=== PATIENT | female | born 1945 | race Caucasian/White ===

== ENCOUNTER 2017-01-25 10:46 | Observation (INO) | payer MEDICARE, BC ==
[~2017-01-25] VITALS: Ht 172.7 cm; Wt 94.1 kg
--- NOTE | ~2017-01-25 | CON ---
PATIENT'S NAME: DAYDAY PINEDA [facility] AGE: 71 Y [address] ROOM: [place] [address] LOCATION: GPCU ADMIT DATE: 01/25/2017 Consultation DISCHARGE DATE: FAMILY PHYSICIAN: Princess Newman MD ATTENDING PHYSICIAN: Sidney Gonzalez DATE OF CONSULTATION: 01/25/2017 REASON FOR CONSULTATION: Complete heart block. CHIEF COMPLAINT: Nausea. HISTORY OF PRESENT ILLNESS: The patient is a very pleasant 71-year-old female, who really does not have any prior cardiac history. She has history of migraines and hyperlipidemia. She had hematuria and was scheduled for cystoscopy today. She underwent her cystoscopy and tolerated the procedure well. However in recovery, she was having episodes of nausea and vomiting and during the episodes of nausea and vomiting, she went into the sinus nelson and then two-to-one AV block as well as complete heart block and sinus pauses lasting about 4.5 seconds. However, once she was done with her vomiting, she reverted back to normal sinus rhythm and sinus bradycardia. She really did not experience any lightheadedness, dizziness, chest pain, tightness, trouble breathing. The patient has history of chest pain off and on and she reports it is usually at rest. She had one episode back about five years ago. The latest episode was about a week ago. It lasted a few minutes and resolved on its own. She is quite active and does not have any cardiac symptoms of chest pain, discomfort, pressure, heaviness, tightness, arm pain, or jaw pain. She does not have dyspnea on exertion. She reports she is able to walk about eight blocks without any significant symptoms. No palpitations, presyncope, or syncopal episodes in the past. REVIEW OF SYSTEMS: All review of systems discussed with the patient. Pertinent positives and negatives mentioned in the history of presenting illness. PAST MEDICAL HISTORY: Hyperlipidemia and migraines. PAST SURGICAL HISTORY: Cystoscopy. She also had a history of cholecystectomy in 2005. PATIENT'S NAME: DAYDAY PINEDA [facility] AGE: 71 Y [address] ROOM: [place] [address] LOCATION: GPCU ADMIT DATE: 01/25/2017 Consultation DISCHARGE DATE: FAMILY PHYSICIAN: Princess Newman MD ATTENDING PHYSICIAN: Sidney Gonzalez MEDICATIONS: She is on fish oil inoh-gnt-[id number] capsules two times a day, Lipitor 20 mg daily, and sumatriptan. FAMILY HISTORY: Positive for premature coronary artery disease. Father had history of heart disease in his late 50s. No sudden cardiac . SOCIAL HISTORY: The patient does not smoke. No illicit drug abuse or alcohol abuse. She is . PHYSICAL EXAMINATION: VITAL SIGNS: Her blood pressure is 150/73, oxygen saturation 95% on room air, temperature 97.6, pulse is in the 70s, respirations 16. GENERAL: No apparent distress. Alert and oriented to time, place, and person. HEENT: Head, atraumatic and normocephalic. Eyes, sclerae white. Mucous membranes moist. SKIN: Warm and dry. HEART: S1 and S2. Regular rate and rhythm. No murmurs, gallops, or rubs. NECK: No JVD. LUNGS: Clear to auscultation bilaterally. ABDOMEN: Soft. Bowel sounds positive. EXTREMITIES: No significant lower extremity on the right side, however, the left ankle is swollen and this is chronic. NEUROLOGIC: Grossly intact. MUSCULOSKELETAL: Good range of motion. Able to move extremities without any difficulty. LABORATORY DATA: Her sodium 143, potassium 4.1, chloride 111, CO2 of 25, anion gap 11.1, glucose 84, BUN 9, creatinine 0.9. Alkaline phosphatase 102, AST 28, ALT 45, estimated GFR 60. WBC 5.7, H and H are 14.9 and 42.3, platelets 198. Tele, normal sinus rhythm. She has had four episodes of nausea and vomiting during all episodes she was in significant sinus nelson with 2-1 AV block with heart rate in the 30s and also episodes of sinus pauses lasting greater than 3 seconds. IMPRESSION: 1. Sinus pause, lasting about 4.4 seconds as well as 2:1 AV block without bundle branch block in the setting of severe nausea and vomiting. 2. Hyperlipidemia. PATIENT'S NAME: DAYDAY PINEDA [facility] AGE: 71 Y [address] ROOM: [place] [address] LOCATION: GPCU ADMIT DATE: 01/25/2017 Consultation DISCHARGE DATE: FAMILY PHYSICIAN: Princess Newman MD ATTENDING PHYSICIAN: Sidney Gonzalez PLAN: At this time, the patient's episodes of bradycardia as well as sinus pause are clearly in correlation with her nausea and vomiting and this can be seen secondary to profound vagal tone and that is the reason for it. She quickly returns back to normal sinus rhythm and her rate is in the 60s to 70s when she does not have nausea. We will admit her overnight and monitor her on telemetry. I will discharge her home on 30-day event monitor just to ensure she does not have any other episodes in the absence of nausea. We will get a 2D echocardiogram since she did have an episode of chest pain about a week ago to ensure her left ventricular systolic function is within normal limits and also assess her valves as well. I do not think she will end up requiring a pacemaker since this is all driven by her increased vagal tone in the setting of severe nausea and vomiting. There is no evidence of high-grade atrioventricular block on her EKG and she does not have any bundle branch blocks. Thank you very much for allowing us to participate in the care of Ms. Pineda. RENATA ROSS MD AT/modl /[id number] CC: Sidney Gonzalez MD d: 01/25/17 2312 t: 01/26/17 1556, CONSULTATION REPORT
--- NOTE | ~2017-01-25 | OR ---
PATIENT'S NAME: DAYDAY PINEDA [facility] AGE: 71 Y [address] ROOM: [place] [address] LOCATION: GPCU ADMIT DATE: 01/25/2017 OR/Procedure Report DISCHARGE DATE: FAMILY PHYSICIAN: Princess Newman MD ATTENDING PHYSICIAN: Sidney Gonzalez SURGEON: Sidney Gonzalez MD AVIATION TECHNICIAN AIRCRAFT: DATE OF PROCEDURE: 01/25/2017 PREOPERATIVE DIAGNOSES: 1. Gross hematuria. 2. Probable left distal ureteral calculus by CT scan. POSTOPERATIVE DIAGNOSES: 1. Gross hematuria. 2. Probable left distal ureteral calculus by CT scan. 3. Cystocele. ANESTHESIA: Sedation. INDICATION: This is a 71-year-old lady who had developed gross hematuria. She had a CT scan which suggested left distal calculus. She presents at this time for cystoscopy and upper tract evaluation. PROCEDURE: Having obtained her informed consent, the patient was taken to the operating room. She was prepped and draped sterilely and in lithotomy position. IV sedation was administered. A 21-Tajik cystoscope was assembled and guided into the urethra. The course of the urethra was unremarkable. We had to look down to see her orifices. As well see after the retrograde, just the contrast drains, her bladder neck is below her symphysis. The bladder itself was otherwise unremarkable on careful examination using the 30- and 70- degree lenses. Fluoroscopic examination was undertaken. The bowel gas pattern and soft tissue outlines were unremarkable. I started on the right side which was felt to be her normal side. Contrast was instilled. The ureter was pristine and delicate as were the calices. There was no evidence of a filling defect or any mass effect. I then injected on the left. Whatever was noted on her CT scan has passed. There was no filling defect. The catheter slides easily to the proximal third. The calices were finely cupped. There was no evidence of obstruction or any filling defect. The bladder was drained, and the case was concluded. PATIENT'S NAME: DAYDAY PINEDA [facility] AGE: 71 Y [address] ROOM: [place] [address] LOCATION: GPCU ADMIT DATE: 01/25/2017 OR/Procedure Report DISCHARGE DATE: FAMILY PHYSICIAN: Princess Newman MD ATTENDING PHYSICIAN: Sidney Gonzalez The patient tolerated the procedure well. Blood loss was negligible. No specimens were sent. The patient returned to recovery room in awake and stable condition. MD DAV BONNERH/daryl /[id number] CC: Tabitha Black APRN d: 01/25/172015 t: 01/26/17 1024, OPERATIVE SUMMARY
--- NOTE | ~2017-01-25 | ECHO ---
Transthoracic Echocardiography Report (TTE) Demographics Patient Name DAYDAY PINEDA Date of Study 01/26/2017 Patient Number [id number] Visit Number [id number] Date of 1945 Room Number G6329 Gender Female Number Age 71 year(s) Referring Carlos Livingston MD Senior Business Process Analyst Felicia Grady, Physician RT,RVT,RDCS Physician Interpreting Sherin Mazariegos MD [employer] Carpenter Physician Supervising Ordering Carlos Livingston MD, MD/MLP Physician Nurse Stress Vacuum Worker Conclusions Contractility Score Summary Normal Left Ventricular contractility was noted. Summary Normal LV/RV size and systolic function. The estimated left ventricular ejection fraction is 70-75%. Mild concentric left ventricular hypertrophy. Mild tricuspid regurgitation by color Doppler. Diastolic assessment reveals Grade I diastolic dysfunction. Procedure Type of Study TTE procedure:2D Echocardiogram, M-Mode, Doppler , Color Doppler. Procedure Date Date: 01/26/2017 Start: 08:48 AM Study Location: Inpatient Portable Technical Quality: Adequate visualization Indications:Arrhythmia. Appropriate Use Criteria: 9 Patient Status: Routine HR: 76 bpm BP: 137/72 mmHg M-Mode/2D Measurements LV Diastolic Dimension: 4.36 cm LV Systolic Dimension: 2.19 cm LV Septum Diastolic: 1.16 cm LV PW Diastolic: 1.22 cm Cardiac Output: 5.73 l/min LVOT VTI: 26.6 cm LV Stroke volume: 75.38 ml Doppler Measurements AV Peak Velocity: 1.42 m/s MV Peak E-Wave: 0.85 m/s AV Peak Gradient: 8.07 mmHg MV Peak A-Wave: 1.08 m/s AV Mean Gradient: 5 mmHg MV E/A Ratio: 0.79 LVOT Peak Velocity: 1.13 m/s MV P1/2t: 73 msec TR Gradient:18.66 mmHg PV Peak Velocity: 0.97 m/s Estimated RAP:10 mmHg PV Peak Gradient: 3.72 mmHg Estimated RVSP: 29 mmHg Estimated PASP: 28.66 mmHg E' Septal Velocity: 0.06 m/s A' Septal Velocity: 0.1 m/s MV E/E' Ratio: 14.7 Findings Left Ventricle Mild concentric left ventricular hypertrophy. Diastolic assessment reveals Grade I diastolic dysfunction. Right Ventricle Normal right ventricle structure and function. Left Atrium Normal left atrial size. Right Atrium Normal right atrial size. IVC imaging is consistent with normal RA pressures. Mitral Valve Normal mitral valve structure and function. Trace MR. Aortic Valve Mild aortic valve sclerosis. Tricuspid Valve Mild tricuspid regurgitation by color Doppler. Pulmonic Valve Normal pulmonic valve structure and function. Pericardial Effusion No evidence of pericardial effusion. Miscellaneous Visualized portions of the aortic root and ascending aorta appear normal in size. Pleural Effusion No evidence of pleural effusion. Contractility Score LV regional wall motion:(0-Non visualized 1-Normal 2-Hypokinesis 3-Akinesis 4-Dyskinesis 5-Aneurysm) Signature dtt: RENATA ROSS dtd: 01/26/17 0848 Physician Self Edit
[~2017-01-25 10:46] MED LIST: FISH OIL 1,2001 EAC1 PO; IMITREX50 MG PO; LIPITOR20 M1 PO; PRESERVISION A1 EAC1 PO
[2017-01-25 11:35] LABS: BASOPHIL # 0.1 K/uL (0.0-0.2); BASOPHIL % 1.4 %; EOSINOPHIL # 0.2 K/uL (0.0-0.5); EOSINOPHIL % 3.9 %; HEMATOCRIT 42.3 % (33.0-46.0); HEMOGLOBIN 14.9 g/dL (10.0-15.0); IMMATURE GRANULOCYTE % 0.2 %; LYMPHOCYTE # 2.4 K/uL (0.8-4.0); LYMPHOCYTE % 41.3 %; MCH 31.5 pg (27.0-34.0); MCHC 35.2 gm/dL (32.0-36.5); MCV 89.4 fl (83.0-98.0); MONOCYTE # 0.5 K/uL (0.0-1.0); MONOCYTE % 9.3 %; MPV 10.5 fl (9.4-12.4); NEUTROPHIL # (ANC) 2.5 K/uL (1.8-7.8); NEUTROPHIL % 43.9 %; NRBC % 0 /100WBC (0-0.00); PLATELET COUNT 198 K/uL (150-450); RBC 4.73 M/uL (3.50-5.50); RDW-CV 12.7 % (11.9-14.6); WBC 5.7 K/uL (4.0-11.0)
[2017-01-25 11:55] LABS: ALBUMIN 3.9 gm/dL (3.5-5.0); ALK PHOS 102 IU/L (33-138); ALT 45 IU/L (12-78); ANION GAP 11.1 (10.0-19.0); AST 28 IU/L (10-40); BLOOD UREA NITROGEN 9 mg/dL (6-24); CALCIUM 9.1 mg/dL (8.5-10.5); CHLORIDE 111 mMol/L (96-110); CO2 25 mMol/L (22-32); CREATININE 0.9 mg/dL (0.5-1.1); ESTIMATED GFR (MDRD EQUATION) > 60; POTASSIUM 4.1 mMol/L (3.7-5.1); SODIUM 143 mMol/L (135-145); TOTAL BILIRUBIN 0.7 mg/dL (0.0-1.5); TOTAL PROTEIN 7.2 g/dL (6.0-8.4)
--- NOTE | 2017-01-25 16:36 | NUR ---
Significant Event: A/O X 3. PT. HAD A CYSTO TODAY, URINE HAS SOME BLOOD NOTED. PT. HAD A GREENISH EMESIS OF 150 ML. HAD MARIO DOWN TO UPPER 30'S-40'S DURING VOMITING EPISODE. AT BEDSIDE, Follow up: CONT. TO MONITER CARDIAC STATUS.
--- NOTE | 2017-01-26 00:17 | NUR ---
1900 PATIENT DENIES PAIN DURING FIRST ASSESSMENT. 2345 PATIENT IS WOKEN FROM SLEEP FOR SECOND ASSESSMENT AND IS COMPLAINING OF A HEADACHE. AT HOME SHE TAKES IMITREX. SHE IS REQUESTING A DOSE NOW. DR. TINSLEY IS CONTACTED TO RESUME HOME DOSE.
--- NOTE | 2017-01-26 00:19 | NUR ---
01/25/17 190 PATIENT AMBULATES IN HALLWAY WITH STAFF MEMBER. PATIENT TOLERATES ACTIVITY WELL.
--- NOTE | 2017-01-26 05:57 | NUR ---
Significant Event: PATIENT IS ALERT AND ORIENTED. UP INDEPENDENTLY/WITH STAND BY ASSIST IN ROOM. IV SITE IS SALINE LOCKED. PATIENT HAS NOT HAD ANY N/V ON THIS SHIFT. NO CALLS FROM TELE. Follow up: PATIENT WILL BE D/C'D TODAY WITH EVENT MONITOR.
--- NOTE | 2017-01-26 12:23 | NUR ---
1220: A/O X 3. AT BEDSIDE. DISM. MOTE: REVIEW OF HOME MEDS, NO NEW MEDS. DIET/ ACTIVITY FOLLOW UP APPT. PT. AND VOICED UNDERSTANDING PT. DISM. AMBULATORY PER HER REQUEST TO WALK. ACC. BY NURSE AND TO PRIVATE VEHICLE.
== END 2017-01-26 12:20 | disposition disaster alternative care site (69) ==
LOC: GSDC 10:46 → GPCU 10:46 → GSDC 10:47 → GPOC 11:00 → GPCU 01-26 12:20
PROVIDERS: ADMIT Urology
PROC: BT14YZZ Fluoroscopy of Kidneys, Ureters and Bladder using Other Contrast (ICD-10-PCS; principal; 2017-01-25)
DX: R31.0 Gross hematuria (principal); E78.5 Hyperlipidemia, unspecified; G43.909 Migraine, unspecified, not intractable, without status migrainosus; Z90.49 Acquired absence of other specified parts of digestive tract; Z79.899 Other long term (current) drug therapy
CPT/HCPCS: G0378; J1956; J2001; J2405; J7120